=== PATIENT | female | born 1980 | race Caucasian/White ===

== ENCOUNTER → 2021-05-02 06:52 | Outpatient (CLI) | payer OTHER, SELFPAY ==
[2021-05-02 20:36] LABS: SARS-CoV-2 RNA PCR Negative
== END ==
PROVIDERS: PCP Physician Assistant; Visit Provider Physician Assistant
DX: Z20.822 Contact with and (suspected) exposure to COVID-19 (principal); R09.89 Other specified symptoms and signs involving the circulatory and respiratory systems; R05 Cough
CPT/HCPCS: C9803; U0003; U0005

== ENCOUNTER 2022-05-16 07:44 | Outpatient (CLI) | payer OTHER, SELFPAY ==
--- NOTE | ~2022-05-16 | CT_ITS ---
EXAMINATION: CT abdomen pelvis w con DATE: 05/16/2022 08:24 INDICATION: Right abdominal pain and bloating. Diarrhea. TECHNIQUE: Computed tomography (CT) of the abdomen and pelvis was performed with 100 cc Omnipaque 350 intravenous contrast. The dose-length product was 374.04 mGy-cm. Automated exposure control and iter ative reconstruction technique were employed. COMPARISON: CT dated 08/07/2015. FINDINGS: Lung bases are unremarkable. Heart size is normal. Trace pleural effusions. Status post cho lecystectomy. Small low-density lesion in the right hepatic lobe, most likely benign. The spleen, andrade creas, adrenal glands and kidneys are unremarkable. Retroverted uterus containing IUD. No significant vascular abnormality. No lymphadenopathy. There are cholecystectomy clips. No free air or free fluid . There are probable fibroid changes of the uterus. Nonobstructive bowel gas pattern. No free air or free fluid. There is an old healed fracture of the right ischium. No acute osseous abnormality. IMPRESSION: 1. No acute abdominal abnormality. Reviewed, dictated and finalized at location A.
== END 2022-05-16 07:45 | disposition home or self-care (01) ==
PROVIDERS: PCP Physician Assistant; Visit Provider Physician Assistant
DX: R10.9 Unspecified abdominal pain (principal); N28.9 Disorder of kidney and ureter, unspecified; N85.4 Malposition of uterus; Z97.5 Presence of (intrauterine) contraceptive device
CPT/HCPCS: 74177; Q9967

== ENCOUNTER → 2022-07-26 09:59 | Outpatient (CLI) | payer OTHER, SELFPAY ==
--- NOTE | ~2022-07-26 | MMUS_ITS ---
EXAMINATION: MM diagnostic ron BI w evon, US breast LT limited HISTORY: Palpable left breast lump TECHNIQUE: Additional 3-D tomosynthesis images of the breasts were performed and synthetic 2-D images were generated. CAD analysis was submitted and interpreted. High resolution Limited left breast ultr asound was performed. COMPARISON: None BREAST PARENCHYMAL COMPOSITION: The breasts are extremely dense, which lowers the sensitivity of mamm ography FINDINGS: MAMMOGRAPHIC FINDINGS: There are no suspicious masses, calcifications or architectural distortion in either breast to sugges t malignancy. ULTRASOUND: Limited left breast ultrasound: Normal heterogeneous echotexture without focal mass in the area of pa lpable concern. IMPRESSION: 1. No evidence for malignancy in either breast. 2. Routine yearly screening mammogram and regular clinical breast examination are recommended. BI-RADS Category 1: Negative Reviewed, dictated and finalized at location A. IMPRESSION: 1. No evidence for malignancy in either breast. 2. Routine yearly screening mammogram and regular clinical breast examination a re recommended. BI-RADS Category 1: Negative
== END ==
PROVIDERS: PCP Physician Assistant
DX: N63.20 Unspecified lump in the left breast, unspecified quadrant (principal)
CPT/HCPCS: 76642; 77062; 77066; G0279

== ENCOUNTER → 2022-09-20 08:47 | Outpatient (CLI) | payer OTHER, SELFPAY ==
--- NOTE | ~2022-09-20 | US_ITS ---
EXAMINATION: US soft tissue head and neck DATE: 09/20/2022 09:13 INDICATION: Pain in throat. Hyperthyroidism. TECHNIQUE: Multiple grayscale and Doppler ultrasound images of the neck were obtained. COMPARISON: None FINDINGS: The right thyroid lobe measures 6.1 x 1.8 x 2.0 cm. The left thyroid lobe measures 6.2 x 1. 6 x 1.9 cm . In the right thyroid lobe, there is a 1.1 cm solid, hypoechoic, wider than tall nodule w ith smooth margin and punctate echogenic foci (TI-RADS TR5). In the left thyroid lobe, there is a 1.1 cm cystic nodule (TR1). In the left thyroid lobe, there is a 6 mm solid, hypoechoic, wider than tall nodule with irregular margin without echogenic foci (TR4). There are multiple smaller nodules in the thyroid. There are normal size lymph nodes bilaterally. IMPRESSION: 1. Multinodular goiter. Ultrasound-guided fine-needle aspiration of the 1.1 cm right thyroid nodule i s recommended. Reviewed, dictated and finalized at location A. ERTY COORDINATOR IMPRESSION: 1. Multinodular goiter. Ultrasound-guided fine-needle aspiration of the 1.1 cm right thyroid nodule is recommended.
== END ==
PROVIDERS: PCP Physician Assistant; Visit Provider Physician Assistant
DX: R07.0 Pain in throat (principal); E04.2 Nontoxic multinodular goiter
CPT/HCPCS: 76536

== ENCOUNTER 2023-01-01 11:22 | Emergency (ER) | payer OTHER, SELFPAY ==
[2023-01-01] VITALS (19 sets, daily range): BP systolic 116–138; BP diastolic 89–106; PULSE 77–112; RESP 12–22; TEMP 36.9; O2SAT 98–100
--- NOTE | ~2023-01-01 | CT_ITS ---
EXAMINATION: CT brain wo con DATE: 01/01/2023 14:02 INDICATION: Left sided paresis, numbness and tingling TECHNIQUE: Computed tomography (CT) of the head was performed without intravenous contrast. The mA wa s adjusted according to patient size. Iterative reconstruction technique was employed. Exam dose: 60 5.33 mGy-cm total exam DLP. COMPARISON: None FINDINGS: No intracranial mass lesion or hemorrhage or cerebrovascular accident. No midline shift or mass effect effect. Normal ventricular size. Normal camara-white matter differentiation. No subdural or epidural hematoma. No fracture or bone destruction of the cranial vault. Included paranasal sinuses and mastoid air cell s are normally developed and aerated. IMPRESSION: Negative Reviewed, dictated and finalized at Location A. Reviewed, dictated and finalized at location L. IMPRESSION: Negative
--- NOTE | ~2023-01-01 | CT_ITS ---
EXAMINATION: CT cervical spine wo con DATE: 01/01/2023 14:02 INDICATION: Left-sided weakness TECHNIQUE: Computed tomography (CT) of the cervical spine was performed without intravenous contrast. The dose-length product (DLP) was 408.97 mGy-cm. Automated exposure control and iterative reconstruc tion technique were employed. COMPARISON: None FINDINGS: No fracture, dislocation, or subluxation. The vertebral body heights are maintained. There is mild loss of intervertebral disc space height at C6-7. The odontoid process is intact. The prevert ebral soft tissues are normal. IMPRESSION: 1. Mild cervical spondylosis without acute findings. Reviewed, dictated and finalized at location F.
--- NOTE | 2023-01-01 11:24 | ECG_ITS ---
Measurements Intervals [place] Rate: 112 P: 66 SD: 138 QRS: 83 QRSD: 102 T: 72 QT: 328 QTc: 450 Interpretive Statements SINUS TACHYCARDIA INCOMPLETE RIGHT BUNDLE BRANCH BLOCK BORDERLINE R WAVE PROGRESSION, ANTERIOR LEADS BASELINE ARTIFACT- I, III, AVL ABNORMAL ECG NO PREVIOUS ECG AVAILABLE FOR COMPARISON Electronically Signed On 01-01-2023 11:38:06 CDT by Steve Kennedy D.O.
--- NOTE | 2023-01-01 12:21 | ED.NEUROSD ---
HPI - Neuro Symptoms/Deficit General Chief Complaint: Neuro Symptoms/Deficit Stated Complaint: dizziness and left sided weakness 20 mins ago Time Seen by Provider: 01/01/23 12:04 History of Present Illness HPI Narrative: 42-year-old female presents to the emergency room today for left-sided weakness and numbness and tingling in her left arm and left leg. She says it started around 11 AM. She has been laying on the couch and she had her head kind of cocked to the left side. When she got up from the couch she noticed that she had the numbness and tingling in her left arm and left leg and was difficult for her to walk. Shortly after that she started having a panic attack. She took some Klonopin and told her that she needed to come to the emergency room. On her initial arrival to the emergency room she was having difficulty lifting both of her arms and legs. Her hands were spasmed and she was hyperventilating. She was given some IV Ativan. Her hands are now relaxed and she is able to move all of her extremities but continues to have weakness in the left arm and left leg. She says that she feels tingling in her left foot. No confusion. No facial droop. No speech difficulty. No chest pain or palpitations. Related Data Allergies Allergy/AdvReac Type Severity Reaction Status Date / Time latex Allergy Redness of Verified 01/01/23 11:45 Skin Review of Systems Review of Systems: CONSTITUTIONAL: Denies fever, chills, or sweats. EYES: Denies visual changes, redness, or discharge. ENT: Denies rhinorrhea, congestion, sore throat, or otalgia. CARDIOVASCULAR: Denies chest pain, palpitations, or edema. RESPIRATORY: Denies cough or dyspnea. GASTROINTESTINAL: Denies abdominal pain, nausea, vomiting, or diarrhea. GENITOURINARY: Denies dysuria or hematuria. SKIN: Denies rash or itching. MUSCULOSKELETAL: Denies back pain, joint pain, or myalgia. NEUROLOGIC: as per HPI PSYCHIATRIC: Denies anxiety or depression. [facility] Family History Family History Father Family history of obesity Hypertension Patient's father is in good health Family history of diabetes mellitus in first degree relative Mother Family history of obesity Family history of osteoarthritis Patient's mother is in good health Sibling Family history of obesity Patient's sister is in good health Grandparent Family history of kidney disease Diabetes mellitus Social History Social History Smoking status: Never smoker Alcohol intake: never Exam Narrative: GENERAL: Well-appearing, well-nourished, and in no acute distress. HEAD: Normocephalic, atraumatic. EYES: PERRLA and EOMI. NECK: Supple. No adenopathy or masses. No carotid bruits or JVD CHEST: Clear to auscultation. No respiratory distress. No wheezes rales or rhonchi HEART: Regular rate and rhythm. No murmur heard. Normal peripheral pulses. ABDOMEN: Soft, nontender, nondistended, normal active bowel sounds. EXTREMITIES: Normal range of motion. No edema. SKIN: Warm, dry, no rash. NEURO: Face symmetrical. mild weakness of left upper and left lower extremities compared to right side but able to overcome resistance bilaterally. Normal sensation with light palpation left arm and left leg. No tremors or spasms. Alert and oriented x3. PSYCH: Normal mood and affect. Course Reevaluation(s) Reevaluation #1: Pt reports symptoms improved Date: 01/01/23 Time: 14:15 Vital Signs Vital signs: Vital Signs Temperature 36.9 C 01/01/23 11:33 Pulse Rate 112 H 01/01/23 11:33 Respiratory Rate 12 01/01/23 11:33 Blood Pressure 138/90 01/01/23 11:33 Pulse Oximetry 100 01/01/23 11:33 Oxygen Delivery Room Air 01/01/23 11:33 Temperature 36.9 C 01/01/23 11:33 Pulse Rate 92 01/01/23 14:06 Respiratory Rate 16 01/01/23 14:06 Blood Pressure 131/95 H 01/01/23 13:31
[2023-01-01 12:31] LABS: Basophils Percent Auto 0.7 % (0.2-1.2); Eosinophils Absolute Auto 0.1 K/mm3 (0-0.3); Eosinophils Percent Auto 1.6 % (0-4.4); Hemoglobin 14.4 g/dL (12.0-15.0); Immature Granulocyte Absolute 0.01 K/mm3 (0.00-0.031); Immature Granulocyte Percent A 0.2 % (0-0.5); Lymphocytes Absolute Auto 2.36 K/mm3 (0.9-3.2); Lymphocytes Percent Auto 42.4 % (18.3-44.2); Mean Corpuscular Hemoglobin 29.9 pg (26-34); Mean Corpuscular Volume 93.4 fl (80-100); Mean Platelet Volume 9.5 fl (7.4-10.4); Monocytes Absolute Auto 0.5 K/mm3 (0.1-0.6); Monocytes Percent Auto 8.6 % (2.6-8.5); Neutrophils Absolute Auto 2.6 K/mm3 (1.3-6.7); Neutrophils Percent Auto 46.5 % (45.5-73.1); Platelet Count Result 226 k/mm3 (150-375); Red Blood Count 4.82 M/mm3 (4.2-5.4); Red Cell Distribution Width 12.2 % (11.5-14.5); White Blood Count 5.6 K/mm3 (4.5-10.0)
[2023-01-01 12:44] LABS: Alveolar/Arterial O2 Gradient 22.5 mmHg; Base Excess ABG 1.9 mEq/l (+/-2.0); Carboxyhemoglobin 1.3 % THb (0-2.0); Fractional Inspired Oxygen 21 %; HCO3 ABG 26.8 mEq/l (22.0-26.0); Methemoglobin ABG 0.3 %THb (0-1.5); Oxygen Content ABG 18.5 %vol (16.0-22.0); Oxygen Saturation ABG 95.2 % (95.0-100.0); Oxyhemoglobin 93.6 % THb (90.0-100.0); PCO2 ABG 43.2 mmHg (35.0-45.0); PO2 ABG 75.5 mmHg (80.0-100.0); Reduced Hemoglobin 4.8 %THb (0-5.0); pH ABG 7.411 (7.350-7.450)
[2023-01-01 12:45] LABS: Device ROOM AIR; Site Drawn LEFT BRACHIAL
[2023-01-01 12:55] LABS: Troponin I 0.021 ng/mL (0.000-0.034)
[2023-01-01 13:35] LABS: Alanine Aminotransferase 31 U/L (6-35); Albumin Level 4.7 g/dL (3.5-5.1); Alkaline Phosphatase 92 U/L (38-126); Anion Gap 5 mmol/L (8-16); Aspartate Amino Transferase 34 U/L (14-36); Bilirubin,Total 0.4 mg/dL (0.2-1.3); Blood Urea Nitrogen 9 mg/dL (7-17); Calcium 8.8 mg/dL (8.4-10.2); Carbon Dioxide 34 mmol/L (22-30); Chloride 102 mmol/L (98-107); Estimated CRCL calculation 122 ml/min; Estimated Glomerular Filt Rate > 60; Glucose 104 mg/dL (65-110); Potassium 3.8 mmol/L (3.4-5.0); Sodium 141 mmol/L (137-145)
[2023-01-01] MEDS: LORazepam INJ (*CRX) 2 MG/ML VIAL 1 MG IV PUSH (13:35)
--- NOTE | 2023-01-01 13:42 | PC.NURSE ---
Up to bathroom via wc. Pt is moving all extremities without difficulty.
== END 2023-01-01 14:55 | disposition home or self-care (01) ==
PROVIDERS: Emergency Provider Nurse Practitioner Family; PCP Physician Assistant
DX: M62.81 Muscle weakness (generalized) (principal); F41.9 Anxiety disorder, unspecified; M47.812 Spondylosis without myelopathy or radiculopathy, cervical region; R00.0 Tachycardia, unspecified; I45.10 Unspecified right bundle-branch block
CPT/HCPCS: 36415; 36600; 70450; 72125; 80053; 82375; 82805; 83050; 84484; 85025; 93005; 96374; 99284; J2060

== ENCOUNTER 2024-01-24 13:17 | Outpatient (CLI) | payer OTHER, SELFPAY ==
--- NOTE | ~2024-01-24 | US_ITS ---
EXAMINATION: US venous doppler [facility] DATE: 01/24/2024 13:45 INDICATION: Left lower limb pain TECHNIQUE: Grayscale ultrasound images without and with compression and Doppler ultrasound images of the left lower extremity veins were obtained. COMPARISON: None. FINDINGS: The visualized portions of left common femoral vein, profunda (deep) femoral vein, femoral vein, popl iteal vein, peroneal veins, posterior tibial veins, gastrocnemius vein and greater saphenous vein out flow are patent. IMPRESSION: 1. No deep venous thrombosis in the left lower limb. Reviewed, dictated and finalized at location A.
== END 2024-01-24 13:18 ==
PROVIDERS: PCP Family Medicine; Visit Provider Physician Assistant
DX: M79.605 Pain in left leg (principal)
CPT/HCPCS: 93971